=== PATIENT | female | born 1955 | race Caucasian/White ===

== ENCOUNTER 2021-10-24 13:30 | Outpatient (CLI) | payer MEDICARE, SELFPAY | END 2021-10-24 23:59 | disposition short-term general hospital (02) | LOC: LABSPEC 13:31 | PROVIDERS: Referring Provider Physician Assistant Surgical; Visit Provider Physician Assistant Surgical | DX: U07.1 COVID-19 (principal) | CPT/HCPCS: 87635; U0003; U0005 ==